=== PATIENT | female | born 1950 | race Caucasian/White ===

== ENCOUNTER 2019-12-01 16:12 | Emergency (ER) | payer MEDICARE, SELFPAY ==
[2019-12-01 16:18] VITALS: BP 151/61; PULSE 90; RESP 18; TEMP 36.6; O2SAT 97
--- NOTE | 2019-12-01 16:26 | ED.SKABFB ---
HPI - Skin/Abscess/Foreign Bdy General Chief complaint: Skin/Abscess/Foreign Body Stated complaint: wasp sting Time Seen by Provider: 12/01/19 16:17 History of Present Illness HPI narrative: She had a wasp sting to the right upper arm this morning since that time she has had progressive swelling localized around the sting. She has both pain and itching to the site. She denies any systemic symptoms. She has no previous allergic reactions to stings or bites. Related Data Home Medications Medication Instructions Recorded Confirmed Vitamin D2 500 mg PO DAILY 12/01/19 multivitamin with minerals 1 tablet PO DAILY 12/01/19 [One-A-Day Maximum Formula] Allergies Allergy/AdvReac Type Severity Reaction Status Date / Time azithromycin Allergy Unknown Unknown Verified 12/01/19 16:39 Review of Systems Review of Systems: All systems reviewed & are unremarkable except as noted in HPI and below PMFSH Past Medical History Medical History Anxiety Deficiency of other specified B group vitamins (10/17/17) Depression Hypothyroidism, unspecified Mixed hyperlipidemia Osteopenia Polymyalgia rheumatica Surgical History Surgical History Normal colonoscopy Family History Family History Other Diabetes mellitus Social History Social History Smoking status: Never smoker Second hand tobacco smoke exposure: No Alcohol intake: current Gender identity (if verbalized by the patient): Female Exam Const: General: healthy appearing, no acute distress and alert Orientation/consciousness: patient oriented x3 HENMT: Head: normal to inspection Neck: Neck: normal visual inspection and no lymphadenopathy Chest: Chest palpation & inspection: no tenderness Resp: Effort & Inspection: normal respiratory effort Auscultation: clear to auscultation bilaterally, no rales, no rhonchi and no wheezes Cardio: Rate: regular rate Rhythm: regular rhythm Skin: Other: well demarcated area of edema and mild erythema to right upper arm edema. Neuro: General: patient oriented x3 and moves all extremities Speech: normal speech Psych: Appearance: well kempt Affect: normal affect Course Course Emergency Course: Mild improvement in rash with epi, benadryl, prednisone, and pepcid. She is feeling ready for discharge Vital Signs Vital signs: Vital Signs Temperature 36.6 C 12/01/19 16:18 Pulse Rate 90 12/01/19 16:18 Respiratory Rate 18 12/01/19 16:18 Blood Pressure 151/61 H 12/01/19 16:18 Pulse Oximetry 97 12/01/19 16:18 Temperature 36.6 C 12/01/19 16:18 Pulse Rate 87 12/01/19 17:50 Respiratory Rate 21 H 12/01/19 17:50 Blood Pressure 127/68 12/01/19 17:50 Pulse Oximetry 95 12/01/19 17:50 Discharge Plan Discharge Clinical Impression: Wasp sting Qualifiers: Encounter type: initial encounter Injury intent: accidental or unintentional Qualified Code(s): T63.461A - Toxic effect of venom of wasps, accidental (unintentional), initial encounter Patient Disposition: Still a Patient Condition: Stable Instructions: Insect Bite or Sting (ED) Prescriptions: New prednisone 20 mg tablet 20 mg PO DAILY Qty: 2 RF: 0 diphenhydramine HCl [Benadryl Allergy] 25 mg tablet 50 mg PO QID Qty: 30 RF: 0 famotidine [Pepcid] 20 mg tablet 20 mg PO BID Qty: 10 RF: 0 No Action multivitamin with minerals [One-A-Day Maximum Formula] Tablet 1 tablet PO DAILY RF: 0 Vitamin D2 tablet 500 mg PO DAILY RF: 0 venlafaxine [Effexor XR] 150 mg capsule,extended release 24hr 150 mg PO DAILY Qty: 90 RF: 1 pantoprazole [Protonix] 40 mg tablet,delayed release (DR/EC) 40 mg PO QAM Qty: 30 RF: 1 prednisone 5 mg tablet 5 mg PO DAILY Qty: 30 RF: 0 zol
[2019-12-01] MEDS: EPINEPHrine HCL INJ 1 MG/ML AMPUL 0.3 MG IM (16:33)
[2019-12-01] MEDS: predniSONE 20 MG TABLET PO (16:34)
[2019-12-01] MEDS: FAMOTIDINE 20 MG TABLET PO (16:34)
[2019-12-01 16:44] VITALS: BP 132/73; PULSE 80; RESP 15; O2SAT 98
[2019-12-01 17:08] VITALS: BP 129/69; PULSE 88; RESP 19; O2SAT 96
[2019-12-01 17:50] VITALS: BP 127/68; PULSE 87; RESP 21; O2SAT 95
== END 2019-12-01 17:52 | disposition home or self-care (01) ==
PROVIDERS: Emergency Provider Emergency Medicine; PCP Family Medicine
DX: T63.461A Toxic effect of venom of wasps, accidental (unintentional), initial encounter (principal); M35.3 Polymyalgia rheumatica; E53.9 Vitamin B deficiency, unspecified; E03.9 Hypothyroidism, unspecified; E78.2 Mixed hyperlipidemia; M85.80 Other specified disorders of bone density and structure, unspecified site
CPT/HCPCS: 96372; 99283; A9270; J0171; J7512

== ENCOUNTER 2020-06-18 08:00 | Outpatient (CLI) | payer MEDICARE, SELFPAY ==
--- NOTE | ~2020-06-18 | MM_ITS ---
EXAMINATION: MM screening sree BI w marko HISTORY: Screening mammogram TECHNIQUE: Craniocaudal and mediolateral oblique 3-D tomosynthesis images were obtained and synthetic 2-D images were generated. CAD analysis was submitted and interpreted. COMPARISON: 06/12/2019, 05/25/2018, 05/19/2017 bilateral digital screening mammogram examinations BREAST PARENCHYMAL COMPOSITION: There are scattered areas of fibroglandular density. FINDINGS: There is no evidence of suspicious mass, calcification, or architectural distortion to sugg est malignancy in either breast. There has been no suspicious interval change. IMPRESSION: 1. No mammographic evidence of malignancy. 2. Recommend routine screening mammography in one year. BI-RADS Category 1: Negative Reviewed, dictated and finalized at location A. VERY CLERK
== END 2020-06-18 08:01 | disposition home or self-care (01) ==
LOC: ANHIMG 08:01
PROVIDERS: Family Provider Family Medicine; PCP Family Medicine; Visit Provider Family Medicine
DX: Z12.31 Encounter for screening mammogram for malignant neoplasm of breast (principal)
CPT/HCPCS: 77063; 77067

== ENCOUNTER 2020-12-08 23:41 | Emergency (ER) | payer MEDICARE, SELFPAY ==
[2020-12-09 00:15] VITALS: BP 141/64; PULSE 81; RESP 20; TEMP 36.4; O2SAT 98
[2020-12-09 00:33] LABS: Basophils Percent Auto 0.1 % (0.2-1.2); Eosinophils Absolute Auto 0.2 K/mm3 (0-0.3); Eosinophils Percent Auto 1.7 % (0-4.4); Hematocrit 41.8 % (37.0-47.0); Hemoglobin 13.1 g/dL (12.0-15.0); Immature Granulocyte Absolute 0.02 K/mm3 (0.00-0.031); Immature Granulocyte Percent A 0.2 % (0-0.5); Lymphocytes Absolute Auto 2.71 K/mm3 (0.9-3.2); Lymphocytes Percent Auto 29.2 % (18.3-44.2); Mean Corpuscular HGB Conc 31.3 g/dl (32-36); Mean Corpuscular Hemoglobin 26.7 pg (26-34); Mean Corpuscular Volume 85.3 fl (80-100); Mean Platelet Volume 10.5 fl (7.4-10.4); Monocytes Absolute Auto 0.4 K/mm3 (0.1-0.6); Monocytes Percent Auto 4.5 % (2.6-8.5); Neutrophils Percent Auto 64.3 % (45.5-73.1); Platelet Count Result 267 k/mm3 (150-375); Red Cell Distribution Width 13.7 % (11.5-14.5); White Blood Count 9.3 K/mm3 (4.5-10.0)
[2020-12-09 00:43] LABS: Anion Gap 10 mmol/L (8-16); Blood Urea Nitrogen 12 mg/dL (7-17); Calcium 9.8 mg/dL (8.4-10.2); Carbon Dioxide 22 mmol/L (22-30); Chloride 105 mmol/L (98-107); Estimated CRCL calculation 62 ml/min; Estimated Glomerular Filt Rate > 60; Glucose 111 mg/dL (65-105); Sodium 137 mmol/L (137-145)
[2020-12-09 00:45] LABS: CRP 0.9 mg/dL (<1.0)
[2020-12-09 02:30] VITALS: BP 119/74; PULSE 77; RESP 18; O2SAT 100
--- NOTE | 2020-12-09 02:33 | ED.SKABFB ---
HPI - Skin/Abscess/Foreign Bdy General Chief complaint: Skin/Abscess/Foreign Body Stated complaint: Stung, L hand swelling Time Seen by Provider: 12/09/20 02:17 Source: patient and RN notes reviewed Mode of arrival: ambulatory Limitations: no limitations History of Present Illness HPI narrative: This is a 70 year old female who presents for evaluation of left hand swelling. Patient states she was stung by a wasp yesterday afternoon. She developed hand swelling and itching. She took benadryl for her itching and swelling. She denies chest pain, sob, rash, throat or tongue swelling . Related Data Home Medications Medication Instructions Recorded Confirmed Vitamin D2 500 mg PO DAILY 12/01/19 02/16/20 multivitamin with minerals 1 tablet PO DAILY 12/01/19 02/16/20 [One-A-Day Maximum Formula] Allergies Allergy/AdvReac Type Severity Reaction Status Date / Time azithromycin Allergy Unknown Unknown Verified 09/24/20 09:09 Review of Systems Review of Systems: All systems reviewed & are unremarkable except as noted in HPI and below PMFSH Past Medical History Medical History Anxiety Arthritis Deficiency of other specified B group vitamins (10/17/17) Depression Hypothyroidism, unspecified Insomnia Mixed hyperlipidemia Osteopenia Polymyalgia rheumatica Vision abnormalities Surgical History Surgical History Normal colonoscopy Family History Family History Other Diabetes mellitus Social History Social History Second hand tobacco smoke exposure: No Alcohol intake: current Gender identity (if verbalized by the patient): Female Exam Const: General: no acute distress and alert Orientation/consciousness: patient oriented x3 Eyes: EOM: EOMs intact bilaterally Chest: Chest palpation & inspection: normal inspection of the chest Resp: Effort & Inspection: normal respiratory effort and no retractions Auscultation: clear to auscultation bilaterally Cardio: Rate: regular rate Rhythm: regular rhythm Neuro: General: patient oriented x3 and moves all extremities Extrem: General: edema (left dorsal hand nonpitting edema) Psych: Mental Status: mental status grossly normal Affect: normal affect Course Reevaluation(s) Reevaluation #1: I have discussed with patient this is local reaction. She is stable for discharge to treat at home Date: 12/09/20 Time: 02:40 Vital Signs Vital signs: Vital Signs Temperature 97.6 F 12/09/20 00:15 Pulse Rate 81 12/09/20 00:15 Respiratory Rate 20 12/09/20 00:15 Blood Pressure 141/64 H 12/09/20 00:15 Pulse Oximetry 98 12/09/20 00:15 Temperature 97.6 F 12/09/20 00:15 Pulse Rate 77 12/09/20 02:30 Respiratory Rate 18 12/09/20 02:30 Blood Pressure 119/74 12/09/20 02:30 Pulse Oximetry 100 12/09/20 02:30 MDM - Skin/Abscess/Foreign Bdy Lab Data Attestation: I reviewed the patient's lab results. Result diagrams: 12/09/20 00:23 12/09/20 00:23 Labs: Lab Results 12/09/20 12/09/20 12/09/20 Range/Units 00:23 00:23 00:23 WBC 9.3 (4.5-10.0) K/mm3 RBC 4.90 (4.2-5.4) M/mm3 Hgb 13.1 (12.0-15.0) g/dL Hct 41.8 (37.0-47.0) % MCV 85.3 (80-100) fl MCH 26.7 (26-34) pg MCHC 31.3 L (32-36) g/dl RDW 13.7 (11.5-14.5) % Plt Count 267 (150-375) k/mm3 MPV 10.5 H (7.4-10.4) fl Immature Gran % (Auto) 0.2 (0-0.5) % Neut % (Auto) 64.3 (45.5-73.1) % Lymph % (Auto) 29.2 (18.3-44.2) % Allen % (Auto) 4.5 (2.6-8.5) % Eos % (Auto) 1.7 (0-4.4) % Baso % (Auto) 0.1 L (0.2-1.2) % Lymph # (Auto) 2.71 (0.9-3.2) K/mm3 Allen # (Auto) 0.4 (0.1-0.6) K/mm3 Eos # (Auto) 0.2 (0-0.3) K/mm3 Baso # (Auto) 0.0
[2020-12-09] MEDS: methylPREDNISolone SOD SUCC 125 MG VIAL IM (02:46)
== END 2020-12-09 02:57 | disposition home or self-care (01) ==
PROVIDERS: Emergency Medicine; Emergency Provider General Practice; PCP Family Medicine
DX: T63.461A Toxic effect of venom of wasps, accidental (unintentional), initial encounter (principal); R22.32 Localized swelling, mass and lump, left upper limb; E03.9 Hypothyroidism, unspecified; E78.2 Mixed hyperlipidemia
CPT/HCPCS: 36415; 80048; 85025; 86140; 96372; 99283; J2930

== ENCOUNTER 2020-12-27 15:40 | Emergency (ER) | payer MEDICARE, SELFPAY ==
[2020-12-27 15:44] VITALS: BP 136/60; PULSE 95; RESP 20; TEMP 36.7; O2SAT 99
--- NOTE | 2020-12-27 17:05 | ED.URI ---
HPI - URI/Sore Throat General Chief Complaint: Upper Respiratory Infection Stated Complaint: COUGH/SOB Source: patient and RN notes reviewed Limitations: no limitations History of Present Illness HPI Narrative: The vaccinated patient-nonsmoker/nondrinker with history of polymyalgia rheumatica on several meds, mood stabilizers-presents with cough. Patient states she has a least a week long history of primary nighttime, cough associated with myalgias with headache and fatigue. No fever, sore throat, S OB, earache, wheeze, CP, sputum changes, loss of taste/smell. SHe is here today concerned as her grandson has recently tested positive for Covid, in the last couple days. Related Data Home Medications Medication Instructions Recorded Confirmed Vitamin D2 500 mg PO DAILY 12/01/19 02/16/20 multivitamin with minerals 1 tablet PO DAILY 12/01/19 02/16/20 [One-A-Day Maximum Formula] Allergies Allergy/AdvReac Type Severity Reaction Status Date / Time azithromycin Allergy Unknown Unknown Verified 12/10/20 13:55 Review of Systems Review of Systems: General/Constitutional: No weight loss,fever Eyes: N0: Redness,discharge Ears/Nose/Throat: No: Epistaxis,ear discharge Respiratory: Denies: Hemoptysis Gastrointestinal: No Vomiting, Bleeding-rectal Skin: No Lumps, eruption Neurologic: No Focal Weakness,Sz Hematologic: Denies: Petechiae/Purpura Psychiatric: No: Suicida ideationl All Other Systems: Reviewed and Negative [facility] Past Medical History Medical History (Updated 12/30/20 @ 18:10 by Rishabh Corbin MD) Anxiety Arthritis Deficiency of other specified B group vitamins (10/17/17) Depression Hypothyroidism, unspecified Insomnia Mixed hyperlipidemia Need for tetanus booster Osteopenia Polymyalgia rheumatica Vision abnormalities Surgical History Surgical History Normal colonoscopy Family History Family History Other Diabetes mellitus Social History Social History Smoking status: Never smoker Second hand tobacco smoke exposure: No Alcohol intake: current Substance use: never Substance use type: does not use Gender identity (if verbalized by the patient): Female Comments At time of signature, agree with nursing past medical, surgical, social and family history. There is no relevant family history pertinent to the presenting complaint Exam Narrative: General Appearance: Well appearing, Well nourished EYE: PERRLA, Conjunctiva clear Ears: Auditory canal normal, TM normal Nose: Rhinorrhea, Mucousal erythema Mouth/Throat: MM moist, Uvula midline, Pharyngeal erythema Neck: Supple, No adenopathy Respiratory: No respiratory distress, Breath sounds equal, Clear to auscultation Cardiovascular: RRR, No JVD Musculoskeletal: Non tender, Normal strength Skin: Warm, Dry Neurological: A&O x3, CN II-XII intact Psychiatric: Normal mood, Normal affect Course Vital Signs Vital signs: Vital Signs Temperature 98.0 F 12/27/20 15:44 Pulse Rate 95 12/27/20 15:44 Respiratory Rate 20 12/27/20 15:44 Blood Pressure 136/60 12/27/20 15:44 Pulse Oximetry 99 12/27/20 15:44 Temperature 98.0 F 12/27/20 15:44 Pulse Rate 95 12/27/20 15:44 Respiratory Rate 20 12/27/20 15:44 Blood Pressure 136/60 12/27/20 15:44 Pulse Oximetry 99 12/27/20 15:44 MDM - URI/Sore Throat Lab Data Labs: Lab Results 12/27/20 12/27/20 Range/Units 16:46 Unknown SARS-CoV-2 RNA (RT-PCR) Negative POC SARS CoV-2 Ag Negative (Negative) Discharge Plan Discharge Clinical Impression: Cough, Nose congestion Patient Disposition: Home, Self-Care Condition: Stable Instructions: Acute Cough (ED) Prescriptions: New benzonatate [Tessalon Perles] 100 mg capsule 100 mg PO TID Qty: 20 RF: 1 co
[2020-12-29 13:58] LABS: SARS-CoV-2 RNA PCR Negative
== END 2020-12-27 17:16 | disposition home or self-care (01) ==
PROVIDERS: Emergency Provider Emergency Medicine; PCP Family Medicine
DX: R05 Cough (principal); R09.81 Nasal congestion; Z20.822 Contact with and (suspected) exposure to COVID-19; M19.90 Unspecified osteoarthritis, unspecified site; E03.9 Hypothyroidism, unspecified; E78.2 Mixed hyperlipidemia; M81.0 Age-related osteoporosis without current pathological fracture; M35.3 Polymyalgia rheumatica
CPT/HCPCS: 87426; 99213; C9803; G0463; U0003; U0005

== ENCOUNTER 2021-02-20 09:27 | Outpatient (CLI) | payer MEDICARE, SELFPAY ==
--- NOTE | ~2021-02-20 | XR_ITS ---
EXAMINATION: XR wrist LT min 3V DATE: 02/20/2021 09:49 INDICATION: Painful left basal joint. TECHNIQUE: Posteroanterior, ulnar deviation, oblique, and lateral views of the left wrist were obtain ed. COMPARISON: none FINDINGS: Alignment is normal. No fracture. Mild polyarticular osteoarthritis at the left distal radioulnar, fi rst carpometacarpal and first interphalangeal joints. Soft tissues are unremarkable. IMPRESSION: 1. 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 No acute osseous a bnormality. Reviewed, dictated and finalized at location A. IMPRESSION: 1. 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 No acute osseous abnormality.
== END 2021-02-20 09:28 | disposition home or self-care (01) ==
LOC: ANHIMG 09:32
PROVIDERS: PCP Family Medicine; Visit Provider Plastic Surgery
DX: M19.031 Primary osteoarthritis, right wrist (principal)
CPT/HCPCS: 73110

== ENCOUNTER 2021-04-10 09:12 | Outpatient (CLI) | payer MEDICARE, SELFPAY ==
--- NOTE | 2021-04-10 09:30 | ECG_ITS ---
Measurements Intervals T[place]ill Rate: 80 P: 25 UT: 177 QRS: 0 QRSD: 78 T: 65 QT: 325 QTc: 375 Interpretive Statements SINUS RHYTHM DELAYED PRECORDIAL R/S TRANSITION LEFT VENTRICULAR HYPERTROPHY WITH ST-T CHANGE BASELINE ARTIFACT- I, II, III, AVR, AVL, AVF, V3-V6 BORDERLINE ECG Electronically Signed On 04-10-2021 15:14:18 INDUSTRIAL ECOLOGIST by Madhav Biswas D.O.
== END 2021-04-10 09:13 | disposition home or self-care (01) ==
LOC: ANHSURGERY 09:15
PROVIDERS: PCP Family Medicine; Visit Provider Plastic Surgery
DX: Z01.810 Encounter for preprocedural cardiovascular examination (principal); E78.2 Mixed hyperlipidemia
CPT/HCPCS: 93005

== ENCOUNTER 2021-04-16 00:56 | Day surgery (SDC) | payer MEDICARE, OTHER, SELFPAY ==
[2021-04-08 13:06] VITALS: BMI 29.2
--- NOTE | 2021-04-08 13:18 | PC.NURSE ---
Report to the Outpatient Waiting Room, entrance under the green pavilion located off [facility], at time ___8:30AM____ on date __04/16/21____. OR Time: ___10:30AM . - You and your visitor will be asked a series of questions to screen for COVID 19 for your protection. - A mask is required within the hospital. - Only one visitor is allowed at this time. Patient visitors will be guided where to wait when not with patient. Preoperative COVID Testing Requirements: No COVID Test needed if: (proof is required; if not received patient will have Rapid Test prior to entry) - Patient has received COVID Vaccine at least 14 days prior to procedure date or - Patient has positive COVID test result within last 90 days of surgery date. COVID Test needed if above criteria is not met If not COVID vaccinated a COVID test must be conducted within 72 hours of surgery and patient is asked to isolate self from time of testing until procedure. You will go to the [employer] [facility] for your COVID testing. The [employer] [facility] is located at the corner of [address] from [facility]. You will only be called if COVID results are positive and your surgeon may reschedule your elective surgery date. Patients may have clear liquids (water, carbonated beverages, clear teas, apple juice) until 3 hours prior to surgery with a maximum of 20 ounces. - No food from midnight until time of surgery - Infants may have breast milk until 4 hours before surgery, infant formula 6 hours prior to surgery. - Children will be allowed to drink immediately following surgery. If applicable, please bring a bottle or sippy cup to assist with drinking. Juice, water, soda, and popsicles are readily available. For infants on formula, please bring formula the day of surgery. Pacifiers are allowed. Take the following medications with a SIP of water the morning of surgery: ___VENLAFAXINE Medications to discontinue per physician ALL VITAMINS/SUPPLEMENTS 3 DAYS PREOP, OK TO CONTINUE ASPIRIN PER DR HICKMAN Date to take last dose 04/13/21 Please no make-up, nail jordanian, hairspray, perfume, deodorant, or body powder the day of surgery. No jewelry (including any body piercings) or valuables the day of surgery, leave them at home. Please take a shower or bath the night before, or the morning of, surgery with an antibacterial soap. Wear comfortable, loose fitting clothing. Children are encouraged to wear pajamas. - Jewelry must be removed prior to entering the operating room. Rings and piercings that are not removed may be cut off. - The hospital will not accept responsibility for valuables. - Please leave all valuables, including medications, at home the day of surgery. If you are going home after surgery, a licensed auto crane driver must drive you home. - NO public transportation without another adult. - We recommend that an adult stay with you for 24 hours following discharge. - We also recommend that you do not drive, make important decision, drink alcoholic beverages, or take any drugs that were not prescribed by your health care provider for at least 24 hours after your discharge time. For Pediatric surgeries, we recommend two adults accompany the child home (only one inside the building at this time). Follow any additional instructions given to you from your surgeon. Telephone instructions given to ____PATIENT and asked if any additional questions and then verbalized understanding. Patient advised to call surgeon office or pre surgery nurse liaison [phone] if any additional questions.
[2021-04-16] VITALS (7 sets, daily range): BP systolic 100–127; BP diastolic 53–66; PULSE 81–127; RESP 15–20; TEMP 36.4–36.8; O2SAT 92–98
--- NOTE | ~2021-04-16 | XR_ITS ---
EXAMINATION: XR surgery orthopedic EXAM DATE: 04/16/2021 12:13 INDICATION: Arthroplasty Lt, Lt Trapezium Resection. TECHNIQUE: Fluoroscopy used during left hand surgery performed by Dr. Ricci Almieda MD. Radiolog ist was not present for the imaging or procedure. Total fluoroscopic time of 14 seconds. The DAP fo r this procedure was 0.006 mGym2. A total of 5 images sent to PACS from the exam. Comparison is made to prior examination from 02/20/2021. FINDINGS: There is been interval resorption of left trapezium, gas within the resection bed. Correl ate with procedure note. IMPRESSION: Fluoroscopy used during left trapezium resection. Reviewed, dictated and finalized at location B. CURVER
--- NOTE | 2021-04-16 08:04 | WPDHPUPDATE1 ---
History and Physical Update Update Date/Time: 04/16/21 08:04 History and Physical has been reviewed, including an updated exam of the patient. There are NO changes in the patient's condition. Risks, benefits, and alternatives have been discussed and questions answered. Patient agrees to proceed with procedure.
[2021-04-16] MEDS: ACETAMINOPHEN 500 MG TABLET 1000 MG PO (09:03)
[2021-04-16] MEDS: LACTATED RINGERS 1,000 ML 30 ML IV CONT (09:05)
--- NOTE | 2021-04-16 09:43 | WPDANESEPPF ---
Anes - Initial Pre Proc Eval Procedure: Operation Date: 04/16/21 10:30 Proposed Procedures p Left Trapezium Resection Arthroplasty with Arthrex Internal Brace - Ricci Almeida MD Date/Time: 04/16/21 09:43 Surgeon: Ricci Almeida MD Pre Op Diagnosis: left first basal joint Oa Patient Data Age: 71 Gender: F Height: 1.6 m Weight: 74.6 kg Last Vital Signs Temp 36.8 C 04/16/21 08:46 Pulse 81 04/16/21 08:46 Resp 20 04/16/21 08:46 BP 126/66 04/16/21 08:46 Pulse Ox 98 04/16/21 08:46 Allergies Allergy/AdvReac Type Severity Reaction Status Date / Time azithromycin AdvReac Unknown Abdominal Verified 04/16/21 08:55 Pain Home Medications Medication Instructions Recorded Confirmed Type Vitamin D2 500 mg PO QAM 12/01/19 04/16/21 History multivitamin with minerals 1 tablet PO DAILY 12/01/19 04/16/21 History [One-A-Day Maximum Formula] simvastatin 20 mg tablet 20 mg PO DAILY #90 tablet 11/17/20 04/16/21 Rx quetiapine 25 mg tablet 25 mg PO QHS #30 tablet 01/14/21 04/16/21 Rx venlafaxine 150 mg 150 mg PO DAILY #90 cap 02/12/21 04/16/21 Rx capsule,extended release 24 hr Aspir-81 81 mg PO QAM 04/08/21 04/16/21 History sertraline 100 mg PO HS 04/08/21 04/16/21 History Patient hx anesthesia problems: none Family hx anesthesia problems: none Results Review: All pre-operative results and documents have been reviewed as part of the pre-operative evaluation. [facility] Past Medical History Medical History Anxiety Arthritis Deficiency of other specified B group vitamins (10/17/17) Depression Hypothyroidism, unspecified Insomnia Mixed hyperlipidemia Need for tetanus booster Osteopenia Polymyalgia rheumatica Prediabetes Vision abnormalities Surgical History Surgical History Normal colonoscopy Family History Family History Other Diabetes mellitus Social History Social History Smoking status: Never smoker Second hand tobacco smoke exposure: No Alcohol intake: current Substance use: never Substance use type: does not use Living arrangements: with family Additional living arrangements comments: [facility] Gender identity (if verbalized by the patient): Female Spiritual care concerns: No Anes - Eval Final PreProcedure Day of Procedure 04/16/21 09:43 Patient weight: overweight Heart: regular rate and rhythm Lungs: clear to auscultation Airway: Mallampati scale class II Neurological: alert and oriented ASA classification: III Emergent: no Anesthetic plan: proceed Anesthesia type and monitoring: general LMA and standard monitoring Results Review: All pre-operative results and documents have been reviewed as part of the pre-operative evaluation. Informed Consent: The patient's anesthetic plan and its attendant risks and benefits were discussed with the patient/family/POA. Questions were solicited and answers provided to the satisfaction of the patient/family/POA.
[2021-04-16] MEDS: ceFAZolin 2 GM/D5W 50 ML 2 GM/50 ML BAG IVPB (10:32)
[2021-04-16] MEDS: LIDO 1%/EPINEPHRINE 1:100,000 50 ML VIAL 10 ML INFILTRATE (12:03)
--- NOTE | 2021-04-16 12:31 | W.PM.PROC2 ---
Procedure Note - Detailed Date of Procedure 04/16/21 Pre-op Diagnosis left first basal joint Oa Post-op Diagnosis same Procedure Performed Left trapezium resection arthroplasty with Arthrex internal brace Surgeon Ricci Almeida MD Personnel Records Clerk Hattie Anesthesia general Description of Procedure The basal joint area on the left was marked in the holding area. The patient was taken to the operating room and placed supine on the operating table. A time-out was held and confirmed. The left upper extremity was prepped and draped usual fashion. The site for incision was marked and the site locally infiltrated with 1% lidocaine with epinephrine. The extremity was exsanguinated with a Kiran wrap and the tourniquet inflated to 250 mmHg. Incision was made as marked and dissection was carried through the subcutaneous tissue to the extensor and abductor tendons. Cutaneous nerves were held out of harm's way. The interspace between the EPB in the APL was incised and the carpal metacarpal joint exposed. The joint space was opened and sharp dissection revealed the base of the metacarpal and exposed radial aspect of the trapezium. Sharp and blunt dissection was carried out as far as we could from this exposure. The trapezium was split in 2 with a mallet and half-inch osteotome. The entire trapezium was removed with a rongeur. The resection was imaged. Radial facet at the base of the 2nd metacarpal was identified and the appropriate position for the guidewire was determined with imaging. The guidewire was inserted the drill was position full-thickness guidewire and the hole for the anchor was made. The Arthrex anchor was inset. The appropriate position on the radial base of the 1st metacarpal was identified the site also is drilled with the guidewire and the Arthrex internal brace drill was passed over that. The wire was removed and the suture tape was positioned appropriately and the anchor lock set. The suture tape was cut. The site was irrigated the capsule was repaired with 3-0 Vicryl suture and the skin with a 3-0 Vicryl on the deep dermis a running intradermal wound closure was accomplished with 4-0 running Monocryl. Bandage and radial thumb spica splint were applied. The tourniquet was released at the time of the wound closure. The patient was given 2 g Ancef preop and some oral Tylenol. No additional local was placed. The patient is discharged from the operating in stable condition she has a prescription for hydrocodone number 10 Implants Arthrex internal brace Estimated Blood Loss -5.0 Tourniquet Time 65 Drains No Packing No Pathology none sent Complications No immediate complications Condition stable Disposition PACU
== END 2021-04-16 13:55 | disposition home or self-care (01) ==
PROVIDERS: PCP Family Medicine; Visit Provider Plastic Surgery
PROC: (CPT 25447; principal; 2021-04-16 10:30)
DX: M18.12 Unilateral primary osteoarthritis of first carpometacarpal joint, left hand (principal); E78.2 Mixed hyperlipidemia; R73.03 Prediabetes; E03.9 Hypothyroidism, unspecified; F41.8 Other specified anxiety disorders; M35.3 Polymyalgia rheumatica; E53.8 Deficiency of other specified B group vitamins; Z79.82 Long term (current) use of aspirin
CPT/HCPCS: 25447; A9270; C1713; J0690; J1100; J2250; J2405; J2704; J3010; J7120

== ENCOUNTER 2021-05-26 11:00 | Outpatient (RCR) | payer MEDICARE, OTHER, SELFPAY ==
--- NOTE | 2021-04-30 09:23 | OTOPEVAL ---
OCCUPATIONAL THERAPY INITIAL EVALUATION REPORT 04/30/21 Thank you for referring Radha Bush to [facility].? The patient is scheduled to be seen for therapy?1x/week for 4 weeks. Please review, sign, date and return this plan of care TIFFANI. I agree with and certify that the following plan of care is medically necessary. 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 Respiratory History Hx Respiratory Disorders No Significant History Gastrointestinal History Hx Gastrointestinal Disorders No Significant History Genitourinary History Hx Kidney Stones Yes: MANY YEARS AGO Musculoskeletal History Hx Arthritis Yes Hx Orthopedic Surgery Yes: LT ROTATOR CUFF REMOVED Hx Other Musculoskeletal Disorders Yes: LT FIRST BASAL JOINT OA Hematological History Hx Hematological Disorders No Significant History Endocrine History Hx Endocrine Disorders No Significant History HEENT History Hx HEENT Disorders No Significant History Integumentary History Hx Skin Disorders No Significant History Reproductive History Hx Post Menopausal Yes Psychosocial History Hx Depression Yes Pain History History of Any Previous or Ongoing No Significant History Instance of Pain Anesthesia History Hx Anesthesia Reactions No Significant History Other History Hx Other Surgeries Yes: rtc left shoulder; pinky finger rt hand; Evaluation Information Problem Diagnosis s/p Trapezium resection with Arthrex internal brace Onset 04/16/21 Cause CMC OA Subjective Information Patient reports that she is Query Text:As Reported By Patient/ able to use the left hand to Family help wash her hair in the shower. She states that she is unable to pinch and open anything, or zip zippers, and has difficulty pinching to pull up pants. She has been using her right hand to help mostly. does cooking. She likes to craft. Prior Level of Function Activity Level (Last 3 Months) Occupation Retired Hand Dominance Right Activity of
--- NOTE | 2021-05-26 11:34 | OTOPEVAL ---
OCCUPATIONAL THERAPY RE-EVALUATION REPORT AND DISCHARGE NOTE 05/26/21 Cary Garcia , is a 71 year-old, right handed female who is 6 weeks s/p left thumb CMC arthroplasty. She has made excellent progress with therapy. She has returned to normal ROM of the wrist and thumb and strength is progressing. She reports no functional limitations at this time. She is independent with HEP. No further skilled OT indicated. Thank you for referring Radha Bush to [facility].? Please review, sign, date and return this D/C Note TIFFANI. I agree with and certify that the following plan of care is medically necessary. Referring Physician Date Admitting Provider: Attending Provider: Ricci Almeida MD Referring Provider: *OT Outpatient Evaluation Start: 04/30/21 08:24 Evaluation Information Problem Diagnosis s/p Trapezium resection with Arthrex internal brace Onset 04/16/21 Cause CMC OA Additional Evaluation Detail This week is 6 weeks post op. She has been very compliant with HEPs. She currently has HEP for ROM and strengthening. Subjective Information Patient reports that she is Query Text:As Reported By Patient/ now able to use the left to Family pinch and open bags/containers , zip zippers, and pull up pants. She reports she has returned to doing her crafting . She reports that she has no limitations at this time. She feels like her ROM and strength have returned. Pain Assessment Timing of Pain Assessment Timing of Pain Assessment Re-assessment Pain Scale Pain Scale Used Numeric (1 - 10) Self Report Pain Assessment Left Hand(s) Reported Pain Level 0 Lowest Pain Intensity 0 Greatest Pain Intensity 3 Pain Score Pain Score 0: Self Report Upper Extremity Range of Motion Wrist Range of Motion Left Wrist Flexion - Active 70 Wrist Extension - Active 60 Wrist Radial Deviation - Active 20 Wrist Ulnar Deviation - Active 35 Wrist Range of Motion Comments Wrist flexion improved from 50* Wrist extension improved from 55* Wrist RD improved from 15* Wrist UD improved from 25* Finger Range of Motion Left Reason Not Measured WNL/Left Finger Range of Motion Comments Hook fist - intact Full fist - intact Thumb Range of Motion Left Thumb MCP Flexion - Active 50 Thumb IP Flexion - Active 65 Thumb CMC Radial Abduction - Active 50 Thumb CMC Palmar Abduction - Active 45 Opposition
== END 2021-05-26 15:47 | disposition home or self-care (01) ==
LOC: ANHOT 11:00
PROVIDERS: PCP Family Medicine; Visit Provider Plastic Surgery
DX: Z48.89 Encounter for other specified surgical aftercare (principal)
CPT/HCPCS: 97018; 97110; 97140; 97165

== ENCOUNTER 2021-07-08 09:18 | Outpatient (CLI) | payer MEDICARE, SELFPAY ==
--- NOTE | ~2021-07-08 | MM_ITS ---
EXAMINATION: MM screening [facility] BI w marko HISTORY: Screening mammogram TECHNIQUE: Craniocaudal and mediolateral oblique 3-D tomosynthesis images were obtained and synthetic 2-D images were generated. CAD analysis was submitted and interpreted. COMPARISON: 06/18/2020, 06/12/2019, 05/25/2018 BREAST PARENCHYMAL COMPOSITION: There are scattered areas of fibroglandular density. FINDINGS: There is no evidence of suspicious mass, calcification, or architectural distortion to sugg est malignancy in either breast. There has been no suspicious interval change. IMPRESSION: 1. No mammographic evidence of malignancy. 2. Recommend routine screening mammography in one year. BI-RADS Category 1: Negative Reviewed, dictated and finalized at location A. CE DETENTION ATTENDANT
== END 2021-07-08 09:19 | disposition home or self-care (01) ==
LOC: ANHIMG 09:20
PROVIDERS: PCP Family Medicine; Visit Provider Family Medicine
DX: Z12.31 Encounter for screening mammogram for malignant neoplasm of breast (principal)
CPT/HCPCS: 77063; 77067

== ENCOUNTER 2021-07-13 00:49 | Day surgery (SDC) | payer MEDICARE, OTHER, SELFPAY ==
[2021-06-29 14:32] VITALS: BMI 28.5
[2021-07-13 09:03] VITALS: BP 136/66; PULSE 79; RESP 18; TEMP 36.1; O2SAT 98; BMI 28.3
--- NOTE | 2021-07-13 09:15 | WPDGICN ---
Assessment and Plan Assessment and plan (1) Encounter for screening colonoscopy: Code(s): Z12.11 - Encounter for screening for malignant neoplasm of colon Status: Acute Assessment and Plan: Patient presents for screening colonoscopy. She has had a family history of colon polyps in her g mother may have had colon cancer. Plan is for surveillance at this time. GI Consult Note Consult date/time: 07/13/21 09:15 HPI: Radha Bush is a 71 year old female Presents for screening colonoscopy. Patient reports her current weight appetite and bowel movements are normal. She denies abdominal pain. She has had no bleeding. Family history is significant that her grandmother had colon cancer mother may have had colon polyps. Last colonoscopy 6 years ago was unremarkable. Patient presents today for neoplasia screening. Review of Systems Review of Systems: All systems reviewed & are unremarkable except as noted in HPI and below PMFSH Past Medical History Medical History (Updated 07/13/21 @ 09:17 by Dre Haley MD) Anxiety Arthritis Deficiency of other specified B group vitamins (10/17/17) Depression Hypothyroidism, unspecified Insomnia Mixed hyperlipidemia Need for tetanus booster Osteopenia Polymyalgia rheumatica Prediabetes Vision abnormalities Surgical History Surgical History (Updated 06/11/21 @ 08:37 by Nilsa Torrez CMA) History of thumb surgery Normal colonoscopy Family History Family History Other Diabetes mellitus Social History Social History Second hand tobacco smoke exposure: No Alcohol intake: current Substance use: never Substance use type: does not use Living arrangements: with family Additional living arrangements comments: ARTURO Gender identity (if verbalized by the patient): Female Sexual Orientation (if Verbalized by the Patient): Straight or Heterosexual Spiritual care concerns: No Agree to blood products: Yes Meds Home Medications and Allergies Home Medications Medication Instructions Recorded Confirmed Type One-A-Day Maximum Formula 1 tablet PO DAILY 12/01/19 06/29/21 History Vitamin D2 500 mg PO QAM 12/01/19 06/29/21 History simvastatin 20 mg tablet 20 mg PO DAILY #90 tablet 11/17/20 06/29/21 Rx venlafaxine 150 mg 150 mg PO DAILY #90 cap 02/12/21 06/29/21 Rx capsule,extended release 24 hr Aspir-81 81 mg PO QAM 04/08/21 06/29/21 History sertraline 100 mg tablet 100 mg PO HS #90 tablet 05/13/21 06/29/21 Rx risperidone 0.5 mg tablet 0.5 mg PO QHS #30 tablet 06/24/21 06/29/21 Rx Allergies Allergy/AdvReac Type Severity Reaction Status Date / Time azithromycin AdvReac Unknown Abdominal Verified 07/13/21 09:02 Pain Vital Signs Vital Signs - 24 hr 07/13/21 09:03 Temperature 97 F L Pulse Rate 79 Respiratory Rate 18 Blood Pressure 136/66 Pulse Oximetry 98 Exam Narrative: Physical exam reveals patient to be alert. Vital signs stable. HEENT exam is unremarkable. Patient is anicteric. Lungs are clear to auscultation and percussion. Heart is without murmur or extra sounds. Abdominal exam bowel sounds are present soft nontender with no organomegaly. Digital external rectal exam is normal.
[2021-07-13] MEDS: LACTATED RINGERS 1,000 ML 150 ML IV CONT (09:19)
[2021-07-13 09:57] VITALS: BP 80/39; PULSE 81; RESP 21; O2SAT 99
[2021-07-13 10:05] VITALS: BP 99/47; PULSE 77; RESP 21; O2SAT 100
[2021-07-13 10:15] VITALS: BP 116/61; PULSE 70; RESP 21; O2SAT 98
== END 2021-07-13 10:27 | disposition home or self-care (01) ==
PROVIDERS: PCP Family Medicine; Visit Provider Internal Medicine Gastroenterology
PROC: 0DJD8ZZ Inspection of Lower Intestinal Tract, Via Natural or Artificial Opening Endoscopic (ICD-10-PCS; CPT 45378; principal; 2021-07-13 10:00)
DX: Z12.11 Encounter for screening for malignant neoplasm of colon (principal); Z83.71 Family history of colonic polyps; K64.8 Other hemorrhoids; M19.90 Unspecified osteoarthritis, unspecified site; F41.8 Other specified anxiety disorders; E53.9 Vitamin B deficiency, unspecified; E03.9 Hypothyroidism, unspecified; E78.2 Mixed hyperlipidemia; R73.03 Prediabetes; M35.3 Polymyalgia rheumatica; Z79.82 Long term (current) use of aspirin
CPT/HCPCS: G0105; J2704; J7120

== ENCOUNTER → 2022-03-05 12:27 | Outpatient (CLI) | payer MEDICARE, SELFPAY ==
--- NOTE | ~2022-03-05 | DEXA_ITS ---
Bone Density Report Name: SHLOMO BULLOCK Age: 72 Sex: Female Ethnicity: White Date of : 1950 Indication: osteopenia; postmenopausal Referring Provider: JOHNNY WILCOX Study: Bone densitometry was performed. Exam Date: March 05, 2022 Accession number: [id number] Bone Density: Region BMD T-score Z-score Classification AP Spine (L1-L4) 0.851 -1.8 0.4 Osteopenia Femoral Neck (Left) 0.693 -1.4 0.4 Osteopenia Total Hip (Left) 0.873 -0.6 1.0 Normal Femoral Neck (Right) 0.637 -1.9 -0.1 Osteopenia Total Hip (Right) 0.873 -0.6 1.0 Normal Total Hip Mean 0.873 -0.6 1.0 Normal World Health Organization criteria for BMD impression classify patients as: Normal (T-score at or above -1.0), Osteopenia (T-score between -1.0 and -2.5), or Osteoporosis (T-score at or below -2.5). 10-year Fracture Risk(1): Major Osteoporotic Fracture 11% Hip Fracture 1.9% Reported Risk Factors: [place] (), Neck BMD=0.637, BMI=30.6 (1) FRAX(R) Version 3.08. Fracture probability calculated for an untreated patient. Fracture probability may be lower if the patient has received treatment. Previous Exams: Region Exam Age BMD T-score BMD Change BMD Change Date g/cm2 vs Baseline vs Previous AP Spine(L1-L4) 03/05/2022 72 0.851 -1.8 0.017 0.031* 10/03/2009 59 0.820 -2.1 -0.014 -0.013 02/16/2008 57 0.833 -1.9 -0.001 -0.001 02/09/2006 55 0.834 -1.9 Total Hip(Left) 03/05/2022 72 0.873 -0.6 -0.014 0.043* 10/03/2009 59 0.830 -0.9 -0.057* -0.064* 02/16/2008 57 0.893 -0.4 0.007 0.007 02/09/2006 55 0.887 -0.5 Total Hip(Right) 03/05/2022 72 0.873 -0.6 -0.009 0.027* 10/03/2009 59 0.846 -0.8 -0.037* -0.010 02/16/2008 57 0.856 -0.7 -0.027 -0.027 02/09/2006 55 0.883 -0.5 *Denotes significance at 95% confidence level, LSC for AP Spine = 0.022 g/cm2, LSC for Total Hip = 0.027 g/cm2 Clinical Information Provided by Patient: Has used the following medications: Calcium, MTV, VIT D included in Calcium Patient maximum height was 63 Menopause Age: 56 Drinks caffeinated beverages Onset of menses at age 13 Number of children 3 Impression: The patient has low bone mass, based on the Right Femoral Neck T-score. The patient has an estimated ten-year risk o
== END ==
PROVIDERS: PCP Family Medicine; Visit Provider Family Medicine
DX: Z78.0 Asymptomatic menopausal state (principal); M85.89 Other specified disorders of bone density and structure, multiple sites
CPT/HCPCS: 77080

== ENCOUNTER 2022-03-19 08:42 | Emergency (ER) | payer MEDICARE, SELFPAY ==
--- NOTE | ~2022-03-19 | US_ITS ---
US right upper quadrant INDICATION: Right upper quadrant pain PROCEDURE: Realtime right upper abdominal ultrasound. COMPARISON: No prior studies for comparison. FINDINGS: The pancreas is normal without focal mass or pancreatic ductal dilation. Liver echotexture is normal without focal mass or intrahepatic biliary dilatation. There is normal directional flow i n the portal vein. There are gallstones. No gallbladder wall thickening or pericholecystic fluid. Common bile duct gely ures 4 mm. No sonographic Roberto's sign. IMPRESSION: 1: Cholelithiasis. Reviewed, dictated and finalized at location A. IMPRESSION: 1: Cholelithiasis.
[2022-03-19 09:00] VITALS: BP 158/79; PULSE 80; RESP 17; TEMP 36.8; O2SAT 94
[2022-03-19 09:19] LABS: Basophils Percent Auto 0.1 % (0.2-1.2); Eosinophils Absolute Auto 0.1 K/mm3 (0-0.3); Eosinophils Percent Auto 0.7 % (0-4.4); Hematocrit 41.4 % (37.0-47.0); Hemoglobin 13.4 g/dL (12.0-15.0); Immature Granulocyte Absolute 0.03 K/mm3 (0.00-0.031); Immature Granulocyte Percent A 0.3 % (0-0.5); Lymphocytes Absolute Auto 1.86 K/mm3 (0.9-3.2); Lymphocytes Percent Auto 18.6 % (18.3-44.2); Mean Corpuscular HGB Conc 32.4 g/dl (32-36); Mean Corpuscular Hemoglobin 28.2 pg (26-34); Mean Platelet Volume 10.2 fl (7.4-10.4); Monocytes Absolute Auto 0.6 K/mm3 (0.1-0.6); Monocytes Percent Auto 5.8 % (2.6-8.5); Neutrophils Absolute Auto 7.4 K/mm3 (1.3-6.7); Neutrophils Percent Auto 74.5 % (45.5-73.1); Platelet Count Result 281 k/mm3 (150-375); Red Blood Count 4.76 M/mm3 (4.2-5.4); Red Cell Distribution Width 13.2 % (11.5-14.5)
[2022-03-19 09:29] LABS: Alanine Aminotransferase 19 U/L (6-35); Albumin Level 4.5 g/dL (3.5-5.1); Alkaline Phosphatase 69 U/L (38-126); Anion Gap 15 mmol/L (8-16); Aspartate Amino Transferase 23 U/L (14-36); Bilirubin,Total 0.2 mg/dL (0.2-1.3); Blood Urea Nitrogen 7 mg/dL (7-17); Calcium 9.5 mg/dL (8.4-10.2); Carbon Dioxide 24 mmol/L (22-30); Chloride 98 mmol/L (98-107); Estimated CRCL calculation 71 ml/min; Estimated Glomerular Filt Rate > 60; Glucose 150 mg/dL (65-110); Lipase 43 U/L (23-300); Potassium 3.6 mmol/L (3.4-5.0); Sodium 137 mmol/L (137-145)
[2022-03-19] MEDS: MORPHINE SULFATE (*CRX) 4 MG/ML INJ IV PUSH (09:45)
--- NOTE | 2022-03-19 10:26 | ED.ABDPAIN ---
HPI - Abdominal Pain General Chief Complaint: Abdominal Pain Stated Complaint: abd pain Time Seen by Provider: 03/19/22 08:57 History of Present Illness HPI narrative: Patient is a 72-year-old female who presents ER with abdominal pain. Located in the right upper quadrant. Began last night at 8:30 PM. Constant throughout the night. Mild nausea but no vomiting. No fevers or chills or sweats. Has been having some pain with eating recently. No known history of gallstones. Related Data Home Medications Medication Instructions Recorded Confirmed multivitamin with minerals 1 tablet PO DAILY 12/01/19 12/07/21 (One-A-Day Maximum Formula tablet) aspirin 81 mg tablet,delayed 81 mg PO DAILY 12/07/21 12/07/21 release (Adult Aspirin Regimen) calcium carb-ergocalciferol (vit tablet PO 12/07/21 12/07/21 D2) 600 mg calcium-200 unit tablet Allergies Allergy/AdvReac Type Severity Reaction Status Date / Time azithromycin AdvReac Unknown Abdominal Verified 12/07/21 10:23 Pain Review of Systems Review of Systems: All systems reviewed & are unremarkable except as noted in HPI and below Constitutional: Constitutional: Denies chills, Denies fatigue and Denies fever(s) ENT: Denies nasal congestion and Denies sore throat Cardiovascular: Cardiovascular: Denies chest pain, Denies rapid heart rate and Denies radiating jaw, neck or arm pain Respiratory: Respiratory: Denies cough and Denies dyspnea Gastrointestinal: Gastrointestinal: Reports abdominal pain, Reports nausea and Denies vomiting PMFSH Past Medical History Medical History Anxiety Arthritis Deficiency of other specified B group vitamins (10/17/17) Depression Hypothyroidism, unspecified Insomnia Mixed hyperlipidemia Need for tetanus booster Osteopenia Polymyalgia rheumatica Prediabetes Vision abnormalities Surgical History Surgical History History of thumb surgery Normal colonoscopy Family History Family History Other Diabetes mellitus Social History Social History Smoking status: Never smoker Second hand tobacco smoke exposure: No Alcohol intake: current Substance use: never Substance use type: does not use Additional living arrangements comments: HUSB Gender identity (if verbalized by the patient): Female Sexual Orientation (if Verbalized by the Patient): Straight or Heterosexual Spiritual care concerns: No Agree to blood products: Yes Exam Narrative: GENERAL: Well-appearing, well-nourished, and in no acute distress. HEAD: Normocephalic, atraumatic. EYES: PERRL and EOMI. CHEST: Clear to auscultation. No respiratory distress. HEART: Regular rate and rhythm. Normal peripheral pulses. ABDOMEN: Soft, tender palpation right upper quadrant without guarding, nondistended. EXTREMITIES: Normal range of motion. No edema. SKIN: Warm, dry, no rash. NEURO: Alert and oriented x3. PSYCH: Normal mood and affect. Course Course Emergency Course: Patient resting comfortably. Pain improved with morphine. Repeat exam does not reveal tenderness. Discussed results and need for follow-up with general surgery. Patient verbalized understanding. Vital Signs Vital signs: Vital Signs Temperature 98.3 F 03/19/22 09:00 Pulse Rate 80 03/19/22 09:00 Respiratory Rate 17 03/19/22 09:00 Blood Pressure 158/79 H 03/19/22 09:00 Pulse Oximetry 94 03/19/22 09:00 Temperature 98.3 F 03/19/22 09:00 Pulse Rate 80 03/19/22 09:00 Respiratory Rate 17 03/19/22 09:00 Blood Pressure 158/79 H 03/19/22 09:00 Pulse Oximetry 94 03/19/22 09:00 MDM - Abdominal Pain Lab Data Result diagrams: 03/19/22 09:14 03/19/22 09:14 Labs: Lab Results 03/19/22
[2022-03-19 10:43] VITALS: BP 132/67; RESP 73; O2SAT 94
== END 2022-03-19 10:50 | disposition home or self-care (01) ==
PROVIDERS: Emergency Provider Emergency Medicine; PCP Family Medicine
DX: K80.20 Calculus of gallbladder without cholecystitis without obstruction (principal); Z79.82 Long term (current) use of aspirin; E03.9 Hypothyroidism, unspecified; E78.5 Hyperlipidemia, unspecified; R73.03 Prediabetes
CPT/HCPCS: 36415; 76705; 80053; 83690; 85025; 96374; 99284; J2270

== ENCOUNTER 2022-03-29 09:22 | Outpatient (CLI) | payer MEDICARE, SELFPAY ==
[2022-03-29 09:57] LABS: Alanine Aminotransferase 18 U/L (6-35); Albumin Level 4.2 g/dL (3.5-5.1); Alkaline Phosphatase 67 U/L (38-126); Amylase 56 U/L (30-110); Aspartate Amino Transferase 23 U/L (14-36); Bilirubin,Total 0.2 mg/dL (0.2-1.3); Lipase 42 U/L (23-300)
== END 2022-03-29 09:23 | disposition home or self-care (01) ==
LOC: ANHSURGERY 09:26
PROVIDERS: PCP Family Medicine; Visit Provider Surgery
DX: Z01.818 Encounter for other preprocedural examination (principal); K80.10 Calculus of gallbladder with chronic cholecystitis without obstruction
CPT/HCPCS: 36415; 80076; 82150; 83690; 86850; 86900; 86901

== ENCOUNTER 2022-03-31 00:14 | Day surgery (SDC) | payer MEDICARE, SELFPAY ==
[2022-03-26 13:36] VITALS: BMI 29.2
--- NOTE | 2022-03-26 13:53 | PC.NURSE ---
Report to the Outpatient Waiting Room, entrance under the green pavilion located off [facility], at time __11:30AM on date __03/31/22 . Planned Procedure Time: _1:30PM . Time changes happen often and if your time is changed the preop area will call you the afternoon before. - You and your visitor will be asked to self-screen and do not enter if you have any COVID symptoms. - We encourage only one visitor and NO visitors under age 16 are allowed at this time. Your visitor will receive communication by the phone number that is given day of service. - The patient visitor is requested to social distance or may leave the building when not with patient due to restrictions. - A mask is required within the hospital. Patients may have clear liquids (water, carbonated beverages, clear teas, apple juice) until 3 hours prior to surgery with a maximum of 20 ounces. - No food from midnight until time of surgery Take the following medications with a SIP of water the morning of surgery: __VENLAFAXINE; ALBUTEROL INHALER, HYDROCODONE & ONDANSETRON NEEDED__ Medications to discontinue per physician ____HOLD ALL VITAMINS/SUPPLEMENT 3 DAYS PRE- OP Date to take last dose____03/27/22 Please no make-up, nail swedish, hairspray, perfume, deodorant, or body powder the day of surgery. No jewelry (including any body piercings) or valuables the day of surgery, leave them at home. Please take a shower or bath the night before, or the morning of, surgery with an antibacterial soap. Wear comfortable, loose fitting clothing. Children are encouraged to wear pajamas. - Jewelry must be removed prior to entering the operating room. Rings and piercings that are not removed may be cut off. - The hospital will not accept responsibility for valuables. - Please leave all valuables, including medications, at home the day of surgery. If you are going home after surgery, a licensed local tanker truck driver must drive you home. - NO public transportation without another adult. - We recommend that an adult stay with you for 24 hours following discharge. - We also recommend that you do not drive, make important decision, drink alcoholic beverages, or take any drugs that were not prescribed by your health care provider for at least 24 hours after your discharge time. Follow any additional instructions given to you from your surgeon. If you or anyone in your household have experienced Covid symptoms in the past week, please notify your surgeon or the nurse liaison at the phone number below for possible testing. Telephone instructions given to ___PATIENT and asked if any additional questions and then verbalized understanding. Patient advised to call surgeon office or pre surgery nurse liaison [phone] if any additional questions.
[2022-03-31] MEDS: ACETAMINOPHEN 500 MG TABLET 1000 MG PO (11:38)
[2022-03-31 11:48] VITALS: BP 129/79; PULSE 73; RESP 16; TEMP 36.6; O2SAT 97
--- NOTE | 2022-03-31 11:50 | WPDANESEPPF ---
Anes - Initial Pre Proc Eval Procedure: Operation Date: 03/31/22 13:30 Proposed Procedures p Laparoscopic Cholecystectomy - Navjot Charlton MD Date/Time: 03/31/22 11:50 Surgeon: Navjot Charlton MD Pre Op Diagnosis: chronic cholecystitis with stones Patient Data Age: 72 Gender: F Height: 1.6 m Weight: 76 kg Last Vital Signs Temp 36.6 C 03/31/22 11:48 Pulse 73 03/31/22 11:48 Resp 16 03/31/22 11:48 BP 129/79 03/31/22 11:48 Pulse Ox 97 03/31/22 11:48 O2 Del Method Room Air 03/31/22 11:48 Allergies Allergy/AdvReac Type Severity Reaction Status Date / Time azithromycin AdvReac Unknown Abdominal Verified 03/31/22 11:33 Pain Home Medications Medication Instructions Recorded Confirmed Type multivitamin with minerals 1 tablet PO DAILY 12/01/19 03/26/22 History (One-A-Day Maximum Formula tablet) simvastatin 20 mg tablet 20 mg PO DAILY #90 tabs 08/12/21 03/26/22 Rx sertraline 100 mg tablet 100 mg PO HS #90 tabs 11/17/21 03/26/22 Rx aspirin 81 mg tablet,delayed 81 mg PO DAILY 12/07/21 03/26/22 History release (Adult Aspirin Regimen) calcium carb-ergocalciferol (vit 1 tablet PO DAILY 12/07/21 03/26/22 History D2) 600 mg calcium-200 unit tablet venlafaxine 150 mg 150 mg PO DAILY #90 caps 01/20/22 03/26/22 Rx capsule,extended release 24 hr (Effexor XR) risperidone 0.5 mg tablet 0.5 mg PO QHS #90 tabs 03/12/22 03/26/22 Rx (Risperdal) albuterol sulfate 90 mcg/actuation 1 inh inhalation Q4H PRN shortness 03/25/22 03/26/22 Rx aerosol inhaler (ProAir HFA) of breath or wheezing #8.5 grams hydrocodone 5 mg-acetaminophen 325 1 tablet PO Q4-6H PRN Pain 03/26/22 03/26/22 History mg tablet ondansetron 4 mg disintegrating 4 mg PO Q4-6H PRN Nausea 03/26/22 03/26/22 History tablet Patient hx anesthesia problems: none Family hx anesthesia problems: none Results Review: All pre-operative results and documents have been reviewed as part of the pre-operative evaluation. [facility] Past Medical History Medical History Anxiety Arthritis Deficiency of other specified B group vitamins (10/17/17) Depression Dyspnea Hypothyroidism, unspecified Insomnia Mixed hyperlipidemia Need for tetanus booster Osteopenia Polymyalgia rheumatica Prediabetes Vision abnormalities Surgical History Surgical History History of thumb surgery Normal colonoscopy S/P shoulder surgery Family History Family History Sibling COPD (chronic obstructive pulmonary disease) Father Lung cancer Mother Acute myocardial infarction Unknown Heart disease Hypertension Cancer Other Diabetes mellitus Social History Social History Smoking status: Never smoker Second hand tobacco smoke exposure: No Alcohol intake: current Substance use: never Substance use type: does not use Has the Lack of Transportation Kept You From Medical Appointments or From Getting Medications?: No Within the Past 12 Months, Were You Worried Whether Your Food Would Run Out Before You Got Money to Buy More?: Never True What is Your Housing Situation Today?: I Have Housing Are You Worried That in the Next 2 Months, You May Not Have Your Own Housing to Live In?: No Do You Have Trouble Paying Your Heating Or Electricity Bill?: No Do You Have Trouble Paying For Medicines?: No Are You Currently Unemployed and Looking for Work?: No Highest Level of Education Completed: High School Diploma/GED Do You Have Trouble With Childcare or the Care of a Family Member?: No Living arrangements: with family Additional living arrangements comments: HUSB Gender identity (if verbalized by the patient): Female Sexual Orientation (if Verbalized by the Patient): Straight or Heterosexual Spiritual
[2022-03-31] MEDS: LACTATED RINGERS 1,000 ML 30 ML IV CONT ×2 (12:03→14:14)
[2022-03-31] MEDS: KETOROLAC 15 MG/ML VIAL (*BKC) IV PUSH (12:03)
--- NOTE | 2022-03-31 12:14 | WPDHPUPDATE1 ---
History and Physical Update Update Date/Time: 03/31/22 12:14 History and Physical has been reviewed, including an updated exam of the patient. There are NO changes in the patient's condition. Risks, benefits, and alternatives have been discussed and questions answered. Patient agrees to proceed with procedure.
[2022-03-31] MEDS: ceFAZolin 2 GM/D5W 50 ML 2 GM/50 ML BAG IVPB (13:05)
[2022-03-31] MEDS: BUPIVACAINE/EPINEPHRINE 0.25% 50 ML VIAL INFILTRATE (13:37)
--- NOTE | 2022-03-31 14:11 | P.OP_ITS ---
Procedure Note - Detailed Date of Procedure 03/31/22 Pre-op Diagnosis chronic cholecystitis with stones Post-op Diagnosis Same Procedure Performed Laparoscopic cholecystectomy Surgeon Navjot Charlton MD [employer] Charity Rivas [facility] Anesthesia General and Local (0.25% Marcaine with epinephrine) Indications Patient has had multiple episodes of postprandial upper abdominal pain. She has numerous gallstones on imaging. She is taken to surgery now for laparoscopic cholecystectomy. Findings Gallbladder showed evidence of chronic inflammation and was literally packed with gallstones. The fluid in the gallbladder was clear consistent with hydrops and cystic duct obstruction. There was no biliary ductal dilatation and no liver abnormalities. Description of Procedure Patient was taken to surgery and induced into general anesthesia. The abdomen is prepped draped. Trocars were placed in the usual fashion using 0.25% Marcaine with epinephrine and applied Medical optical trocars. A 5 mm camera was used. The gallbladder was decompressed with a laparoscopic aspirator. The fluid in the gallbladder was clear as mentioned above. There was many gallstones such that there was very little fluid drained off and the gallbladder was still very distended with dozens of stones. We retracted the gallbladder anterosuperiorly. Dissection was carried out in the cholecystohepatic triangle. The cystic duct and cystic artery were dissected out very clearly. We dissected the gallbladder off the liver at its lower 3rd. Critical view was achieved. I then securely clipped and divided the cystic duct and cystic artery. The gallbladder was then dissected free of its remaining attachments to the liver. It was placed in an Endo-Catch bag and retrieved through the epigastric trocar site. I had to enlarge both the skin and the fascial opening at the epigastric trocar site to accommodate the gallbladder. Once the gallbladder was removed, replaced the epigastric trocar and used a towel clip to occlude the skin and subcutaneous a week and reinsufflated. I reviewed the gallbladder fossa and right upper quadrant. All looked good with no evidence of bleeding or bile leakage. We then evacuated CO2 and removed the trocar sleeves. I closed the fascia at the epigastric trocar site with 0 Vicryl suture. The subQ was closed with 3-0 Vicryl suture. Skin wounds were all closed with 4-0 Monocryl subcuticular skin suture. The wounds were dressed with Exofin surgical adhesive. The patient was awakened and taken to recovery in good condition. Sponge and needle counts were correct x2. Estimated Blood Loss -5 Drains No Packing No Pathology Yes (Gallbladder) Complications No immediate complications Condition Stable Disposition PACU [facility] Billing Surgery - Charge Forward: Surgery Billing (Laparoscopic cholecystectomy)
[2022-03-31 14:20] VITALS: BP 129/44; PULSE 84; RESP 13; TEMP 36.4; O2SAT 100
[2022-03-31 14:35] VITALS: BP 108/47; PULSE 83; RESP 13; O2SAT 100
[2022-03-31 14:50] VITALS: BP 110/53; PULSE 82; RESP 16; O2SAT 98
[2022-03-31 15:05] VITALS: BP 122/58
[2022-03-31 15:35] VITALS: BP 117/54; PULSE 87; RESP 16
== END 2022-03-31 16:00 | disposition home or self-care (01) ==
PROVIDERS: PCP Family Medicine; Visit Provider Surgery
PROC: 0FT44ZZ Resection of Gallbladder, Percutaneous Endoscopic Approach (ICD-10-PCS; CPT 47562; principal; 2022-03-31 13:30)
DX: K80.10 Calculus of gallbladder with chronic cholecystitis without obstruction (principal); K82.1 Hydrops of gallbladder; E78.2 Mixed hyperlipidemia; M35.3 Polymyalgia rheumatica; F41.9 Anxiety disorder, unspecified; R73.03 Prediabetes; F32.A Depression, unspecified; Z79.51 Long term (current) use of inhaled steroids; Z79.82 Long term (current) use of aspirin
CPT/HCPCS: 47562; 88304; A9270; C1713; J0690; J1100; J1885; J2405; J2704; J2710; J3010; J7120

== ENCOUNTER 2022-04-21 14:09 | Outpatient (CLI) | payer MEDICARE, SELFPAY ==
--- NOTE | 2022-04-21 16:19 | WPDPFTINT ---
PFT Procedure Performed PFT Procedure Performed Plethysmography (Lung Vol) Diffusing Cap (DLCO) Flow Vol Loop Spirometry w/o Bronchodil PFT Interpretation This is a pulmonary function test with spirometry, plethysmography and diffusing capacity. The test was performed and results interpreted in accordance with the 2019 and 2005 ATS/ERS Task Force guidelines respectively using the Global Lung Function Initiative-2012 reference equations. Patient demonstrated good effort and cooperation. Reproducibility criteria were met. The quality of the spirometry maneuver was Grade A. Findings: Spirometry: The contour the inspiratory and expiratory flow tracing are normal. The FVC is 2.56 L, 94% predicted. The FEV1 is 2.10 L, 99% predicted. The FEV1: FVC ratio was 82%. Plethysmography: The total lung capacity is 4.53 L, 92% predicted. The functional residual capacity is 2.13 L, 76% predicted. The residual volume is 1.90 L, 88% predicted. Diffusing capacity: The diffusing capacity unadjusted for hemoglobin and carboxyhemoglobin is 18.0, 90% predicted. The diffusing capacity adjusted for alveolar volume is 5.03, 116% predicted. Impression: The spirometry is normal without evidence of an obstructive abnormality. The lung volumes are normal. The diffusing capacity is normal. There are no prior studies for comparison
== END 2022-04-21 14:10 | disposition home or self-care (01) ==
LOC: ANHPFT 14:10
PROVIDERS: PCP Family Medicine; Visit Provider Physician Assistant Medical
DX: R06.00 Dyspnea, unspecified (principal)
CPT/HCPCS: 94060; 94726; 94729

== ENCOUNTER 2022-08-14 09:11 | Outpatient (CLI) | payer MEDICARE, SELFPAY ==
--- NOTE | ~2022-08-14 | MM_ITS ---
EXAMINATION: MM screening [facility] BI w marko HISTORY: Screening TECHNIQUE: Craniocaudal and mediolateral oblique 3-D tomosynthesis images were obtained and synthetic 2-D images were generated. CAD analysis was submitted and interpreted. COMPARISON: Comparison to multiple prior studies sequentially, with oldest reviewed study dated 04/29. BREAST PARENCHYMAL COMPOSITION: Breast composed of scattered areas of fibroglandular density FINDINGS: There is no evidence of suspicious mass, calcification, or architectural distortion to sugg est malignancy in either breast. There has been no suspicious interval change. IMPRESSION: 1. No mammographic evidence of malignancy. 2. Recommend routine screening mammography in one year. BI-RADS Category 1: Negative Reviewed, dictated and finalized at location A.
== END 2022-08-14 09:12 | disposition home or self-care (01) ==
PROVIDERS: PCP Family Medicine; Visit Provider Family Medicine
DX: Z12.31 Encounter for screening mammogram for malignant neoplasm of breast (principal)
CPT/HCPCS: 77063; 77067

== ENCOUNTER 2023-08-18 09:23 | Outpatient (CLI) | payer MEDICARE, SELFPAY ==
--- NOTE | ~2023-08-18 | MM_ITS ---
EXAMINATION: MM screening [facility] BI w marko HISTORY: Screening TECHNIQUE: Craniocaudal and mediolateral oblique 3-D tomosynthesis images were obtained and synthetic 2-D images were generated. CAD analysis was submitted and interpreted. COMPARISON: Comparison to multiple prior studies sequentially, with oldest reviewed study dated 04/30. BREAST PARENCHYMAL COMPOSITION: Not dense: There are scattered areas of fibroglandular density. FINDINGS: There is no evidence of suspicious mass, calcification, or architectural distortion to sugg est malignancy in either breast. There has been no suspicious interval change. IMPRESSION: 1. No mammographic evidence of malignancy. 2. Recommend routine screening mammography in one year. BI-RADS Category 1: Negative Reviewed, dictated and finalized at location A.
== END 2023-08-18 09:24 | disposition home or self-care (01) ==
PROVIDERS: PCP Family Medicine; Visit Provider Family Medicine
DX: Z12.31 Encounter for screening mammogram for malignant neoplasm of breast (principal)
CPT/HCPCS: 77063; 77067

== ENCOUNTER 2023-10-13 14:23 | Emergency (ER) | payer MEDICARE, SELFPAY ==
[2023-10-13 14:36] VITALS: BP 117/65; PULSE 91; RESP 16; TEMP 36.3; O2SAT 98
--- NOTE | 2023-10-13 14:37 | ED.GENADULT ---
HPI - General Adult General Chief complaint: Wound/Laceration Stated complaint: Swollen Right Foot Time Seen by Provider: 10/13/23 14:37 Source: patient, RN notes reviewed and old records reviewed Mode of arrival: ambulatory Limitations: no limitations History of Present Illness HPI narrative: 73-year-old female presents to the [facility] with complaints of 4th toe right foot being itchy, red and swollen. Area between toes 3 and 4 has mild induration, sloughing skin, probable athlete's foot. Surrounding erythema noted with some increased warmth States she may have been bit a day or 2 ago but woke up this morning redness Related Data Home Medications Medication Instructions Recorded Confirmed multivitamin with minerals 1 tablet PO DAILY 12/01/19 10/13/23 (One-A-Day Maximum Formula tablet) aspirin 81 mg tablet,delayed 81 mg PO DAILY 12/07/21 10/13/23 release (Adult Aspirin Regimen) calcium carb-ergocalciferol (vit 1 tablet PO DAILY 12/07/21 10/13/23 D2) 600 mg calcium-200 unit tablet Allergies Allergy/AdvReac Type Severity Reaction Status Date / Time azithromycin AdvReac Unknown Abdominal Verified 10/13/23 14:58 Pain Review of Systems Review of Systems: All systems reviewed & are unremarkable except as noted in HPI and below Constitutional: Constitutional: Reports no additional constitutional complaints Eyes: Eyes: Reports no additional eye complaints ENT: Reports system reviewed and no additional complaints, except as documented Cardiovascular: Cardiovascular: Reports no additional cardiovascular complaints, Denies chest pain and Denies dyspnea Respiratory: Respiratory: Reports no additional respiratory complaints, Denies chest congestion, Denies cough and Denies dyspnea Gastrointestinal: Gastrointestinal: Reports no additional gastrointestinal complaints, Denies abdominal pain, Denies nausea and Denies vomiting Musculoskeletal: Musculoskeletal: Reports no additional musculoskeletal complaints Integumentary/Breasts: Skin/Breast: Reports as per HPI Neurologic: Reports system reviewed and no additional complaints, except as documented Psychiatric: Psychiatric: Reports no additional psychiatric complaints Allergic/Immunologic: Allergic/Immunologic: Reports no additional allergic/immunologic complaints PMF Past Medical History Medical History Anxiety Arthritis Deficiency of other specified B group vitamins (10/17/17) Depression Dyspnea Hypothyroidism, unspecified Insomnia Mixed hyperlipidemia Need for tetanus booster Osteopenia Polymyalgia rheumatica Prediabetes Vision abnormalities Surgical History Surgical History History of thumb surgery Hx laparoscopic cholecystectomy 03/31/22 Normal colonoscopy S/P shoulder surgery Family History Family History Sibling COPD (chronic obstructive pulmonary disease) Father Lung cancer Mother Acute myocardial infarction Unknown Heart disease Hypertension Cancer Other Diabetes mellitus Social History Social History Smoking status: Never smoker Second hand tobacco smoke exposure: No Alcohol intake: current Substance use: never Substance use type: does not use Lack of Transportation: No Lack of Food: Never True Current Housing: I Have Housing Concerned About Future Housing: No Difficulty Paying Gas/Electric Bills: No Difficulty Paying for Meds: No Currently Unemployed: No Education: High School Diploma/GED Difficulty w/ Childcare or Family Care: No Living arrangements: with family Additional living arrangements comments: [place] Gender identity (if verbalized by the patient): Female Sexual Orientation (if Verbalized by the Patient): Straight or Heterosexual Spiritual care jaguar
== END 2023-10-13 14:56 | disposition home or self-care (01) ==
PROVIDERS: Emergency Provider Nurse Practitioner; PCP Family Medicine
DX: B35.3 Tinea pedis (principal); L03.031 Cellulitis of right toe; E03.9 Hypothyroidism, unspecified; E78.2 Mixed hyperlipidemia; M85.80 Other specified disorders of bone density and structure, unspecified site; M35.3 Polymyalgia rheumatica; R73.03 Prediabetes; M19.90 Unspecified osteoarthritis, unspecified site; Z79.82 Long term (current) use of aspirin
CPT/HCPCS: 99213; G0463

== ENCOUNTER 2024-08-18 10:08 | Outpatient (CLI) | payer MEDICARE, SELFPAY ==
--- NOTE | ~2024-08-18 | MM_ITS ---
EXAMINATION: MM screening [facility] BI w marko HISTORY: Screening TECHNIQUE: Craniocaudal and mediolateral oblique 3-D tomosynthesis images were obtained and synthetic 2-D images were generated. CAD analysis was submitted and interpreted. COMPARISON: 08/18/2023 and dating back to 06/12/2019 BREAST PARENCHYMAL COMPOSITION: The breasts are heterogeneously dense, which may obscure small masses . FINDINGS: Punctate and bulky calcifications are detected bilaterally, stable and benign in appearance . Stable parenchymal pattern without suspicious microcalcifications, architectural distortion, discrete masses or significant asymmetry. IMPRESSION: 1. No mammographic evidence of malignancy. 2. Recommend routine screening mammography in one year. BI-RADS Category 2: Benign finding(s). Reviewed, dictated and finalized at location A.
== END 2024-08-18 10:09 | disposition home or self-care (01) ==
LOC: ANHIMG 10:11
PROVIDERS: PCP Family Medicine; Visit Provider Family Medicine
DX: Z12.31 Encounter for screening mammogram for malignant neoplasm of breast (principal)
CPT/HCPCS: 77063; 77067

== ENCOUNTER 2025-01-21 17:30 | Emergency (ER) | payer MEDICARE, SELFPAY ==
[2025-01-21] VITALS (11 sets, daily range): BP systolic 139–153; BP diastolic 66–73; PULSE 76–99; RESP 14–22; TEMP 36.6; O2SAT 95–98
--- NOTE | ~2025-01-21 | XR_ITS ---
EXAMINATION: XR chest 2V DATE: 01/21/2025 18:39 INDICATION: Dizziness TECHNIQUE: PA and lateral views of the chest were obtained. COMPARISON: Chest radiograph dated 08/12/2016 FINDINGS: Unchanged small paracardial fat pads projecting along the anterior lung bases on the lateral projection. No new airspace opacities, pulmonary edema, pleural effusion or pneumothorax. The cardiomediastinal silhouette is normal. Cholecystectomy clips in right upper quadrant. Atherosclerotic aorta. IMPRESSION: 1. No acute cardiopulmonary disease. Reviewed, dictated and finalized at location A.
--- NOTE | ~2025-01-21 | CT_ITS ---
EXAMINATION: CT brain wo con DATE: 01/21/2025 18:35 INDICATION: Dizziness TECHNIQUE: Computed tomography (CT) of the head was performed without intravenous contrast. Sagittal and coronal reconstructions were performed. The mA was adjusted according to patient size. Iterative reconstruction technique was employed. The dose-length product was 681.00 mGy-cm. COMPARISON: head CT dated 11/14/13 FINDINGS: No acute intracranial hemorrhage, acute infarction or abnormal extra axial fluid collection. There is mild scattered white matter hypoattenuation consistent with chronic small vessel ischemic disease. Symmetric prominence of the sulci and ventricles consistent with mild age-appropriate diffuse cerebral volume loss. Ventricles are normal and symmetric. No mass/mass effect. Mild mucosal thickening in the right sphenoid sinus. The orbits and mastoid air cells are normal. IMPRESSION: 1. Normal aging brain. No acute intracranial process. Reviewed, dictated and finalized at location A.
[2025-01-21] MEDS: MECLIZINE HCL 25 MG TABLET PO (18:59)
[2025-01-21] MEDS: SODIUM CHLORIDE 0.9% IV 1,000 ML 999 ML IV CONT (19:07)
[2025-01-21 20:08] LABS: Add Urine Microscopic? YES; Appearance Urine Cloudy (Clear); Glucose Urine UA Negative (Negative); Leukocyte Esterase Ur 1+ LEU/UL (Negative); Nitrate Urine Negative (Negative); Non Pathogenic Casts 0-2; Specific Grav Ur 1.011 (1.001-1.035)
--- NOTE | 2025-01-21 20:26 | ED.GENADULT ---
HPI - General Adult General Chief complaint: Dizziness Stated complaint: dizzy for days Time Seen by Provider: 01/21/25 18:00 History of Present Illness HPI narrative: Patient is a 74-year-old female who presents ER with dizziness. Ongoing for 5 days. Called her PCP today who recommended she come to the ER for blood work and imaging. She becomes dizzy when she looks up or sometimes when she is walking in turns her head. No sinus congestion or sore throat or cough. No tinnitus. She has not had similar symptoms in the past. No arm or leg numbness or weakness. No slurred speech. Symptoms are short lived and reproducible. Related Data Home Medications ?Medication ?Instructions ?Recorded ?Confirmed ?Last Taken ?Type multivitamin with minerals 1 tablet PO DAILY 12/01/19 11/15/24 04/12/21 History (One-A-Day Maximum Formula tablet) aspirin 81 mg tablet,delayed 81 mg PO DAILY 12/07/21 11/15/24 Unknown History release (Adult Aspirin Regimen) calcium carb-ergocalciferol (vit 1 tablet PO DAILY 12/07/21 11/15/24 Unknown History D2) 600 mg calcium-200 unit tablet Allergies Allergy/AdvReac Type Severity Reaction Status Date / Time azithromycin AdvReac Unknown Abdominal Verified 01/21/25 17:31 Pain Review of Systems Review of Systems: All systems reviewed & are unremarkable except as noted in HPI and below Constitutional: Constitutional: Reports no additional constitutional complaints ENT: Reports system reviewed and no additional complaints, except as documented Cardiovascular: Cardiovascular: Reports no additional cardiovascular complaints Respiratory: Respiratory: Reports no additional respiratory complaints Gastrointestinal: Gastrointestinal: Reports no additional gastrointestinal complaints Musculoskeletal: Musculoskeletal: Reports no additional musculoskeletal complaints [facility] Past Medical History Medical History Dyspnea Prediabetes Need for tetanus booster Insomnia Arthritis Vision abnormalities Polymyalgia rheumatica Anxiety Deficiency of other specified B group vitamins (10/17/17) Depression Hypothyroidism, unspecified Mixed hyperlipidemia Osteopenia Surgical History Surgical History Hx laparoscopic cholecystectomy 03/31/22 S/P shoulder surgery History of thumb surgery Normal colonoscopy Family History Family History Sibling COPD (chronic obstructive pulmonary disease) Father Lung cancer Mother Acute myocardial infarction Unknown Heart disease Hypertension Cancer Other Diabetes mellitus Social History Social History Smoking status: Never smoker Second hand tobacco smoke exposure: No Alcohol intake: current Substance use: never Substance use type: does not use Lack of Transportation: No Lack of Food: Never True Current Housing: I Have Housing Concerned About Future Housing: No Difficulty Paying Gas/Electric Bills: No Difficulty Paying for Meds: No Currently Unemployed: No Education: High School Diploma/GED Difficulty w/ Childcare or Family Care: No Living arrangements: with family Additional living arrangements comments: HUSB Gender identity (if verbalized by the patient): Female Sexual Orientation (if Verbalized by the Patient): Straight or Heterosexual Spiritual care concerns: No Agree to blood products: Yes Exam Narrative: GENERAL: Well-appearing, well-nourished, and in no acute distress. HEAD: Normocephalic, atraumatic. EYES: PERRL, EOMI ENT: Mucous membranes moist. CHEST: Clear to auscultation. No respiratory distress. HEART: Regular rate and rhythm. Normal peripheral pulses. ABDOMEN: Soft, nontender, nondistended. EXTREMITIES: Normal range of motion. No edema. SKIN: Warm, dry, no rash. NEURO: Alert and oriented x3. PSYCH: Normal mood and affect. Course Course Emergency Course: Patient resting comfortably. Dizziness improved with meclizine. Unremarkable workup. Discharge home. Vital Signs Vital signs: Vital Signs Temperature 97.8 F 01/21/25 17:32 Pulse Rate 99 01/21/25 17:32 Respiratory Rate 17 01/21/25 17:32 Blood Pressure 153/69 H 01/21/25 17:32 Pulse Oximetry 98 01/21/25 17:32 Oxygen Delivery Room Air 01/21/25 17:32 Temperature 97.8 F 01/21/25 17:32 Pulse Rate 77 01/21/25 19:25 Respiratory Rate 22 H 01/21/25 18:45 Blood Pressure 140/66 01/21/25 18:16 Pulse Oximetry 96 01/21/25 18:45 Oxygen Delivery Room Air 01/21/25 17:32 Medical Decision Making Vital Signs Vital Signs: Vital Signs Temperature 97.8 F 01/21/25 17:32 Pulse Rate 99 01/21/25 17:32 Respiratory Rate 17 01/21/25 17:32 Blood Pressure 153/69 H 01/21/25 17:32 Pulse Oximetry 98 01/21/25 17:32 Oxygen Delivery Room Air 01/21/25 17:32 Temperature 97.8 F 01/21/25 17:32 Pulse Rate 77 01/21/25 19:25 Respiratory Rate 22 H 01/21/25 18:45 Blood Pressure 140/66 01/21/25 18:16 Pulse Oximetry 96 01/21/25 18:45 Oxygen Delivery Room Air 01/21/25 17:32 Lab Data 01/21/25 19:09 01/21/25 19:09 Labs: Lab Results 01/21/25 01/21/25 Range/Units 19:09 19:59 WBC 6.6 (4.5-10.0) K/mm3 RBC 4.40 (4.2-5.4) M/mm3 Hgb 12.1 (12.0-15.0) g/dL Hct 38.5 (37.0-47.0) % MCV 87.5 (80-100) fl MCH 27.5 (26-34) pg MCHC 31.4 L (32-36) g/dl RDW 13.9 (11.5-14.5) % Plt Count 248 (150-375) k/mm3 MPV 11.0 H (7.4-10.4) fl Immature Gran % (Auto) 0.3 (0-0.5) % Neut % (Auto) 49.7 (45.5-73.1) % Lymph % (Auto) 35.7 (18.3-44.2) % [place] % (Auto) 10.6 H (2.6-8.5) % Eos % (Auto) 3.5 (0-4.4) % Baso % (Auto) 0.2 (0.2-1.2) % Lymph # (Auto) 2.37 (0.9-3.2) K/mm3 [place] # (Auto) 0.7 H (0.1-0.6) K/mm3 Eos # (Auto) 0.2 (0-0.3) K/mm3 Baso # (Auto) 0.0 (0.0-0.1) K/mm3 Abs Immat Gran (auto) 0.02 (0.00-0.031) K/mm3 Absolute Neuts (auto) 3.3 (1.3-6.7) K/mm3 Absolute Nucleated RBC 0.000 (0.0-0.012) K/mm3 Nucleated RBC % 0.0 (0.0-0.2) % Sodium 135 L (137-145) mmol/L Potassium 3.9 (3.4-5.0) mmol/L Chloride 103 (98-107) mmol/L Carbon Dioxide 24 (22-30) mmol/L Anion Gap 8 (4-12) mmol/L BUN 13 D (7-17) mg/dL Creatinine 0.70 (0.7-1.0) mg/dL Estim Creat Clear Calc 58 ml/min Estimated GFR > 60 (59 - ) Glucose 109 (65-110) mg/dL Calcium 9.2 (8.4-10.2) mg/dL Total Bilirubin 0.2 (0.2-1.3) mg/dL AST 31 (14-36) U/L ALT 22 (6-35) U/L Alkaline Phosphatase 50 (38-126) U/L Total Protein 6.7 (6.3-8.2) g/dL Albumin 4.0 (3.5-5.1) g/dL Urine Color Yellow (Yellow) Urine Appearance Cloudy H (Clear) Urine pH 6.5 (5.0-9.0) Ur Specific [place] 1.011 (1.001-1.035) Urine Protein Negative (Negative) mg/dL Urine Glucose (UA) Negative (Negative) mg/dL Urine Ketones Negative (Negative) mg/dL Ur Blood (Man) Trace (Negative) Urine Nitrate Negative (Negative) Urine Bilirubin Negative (Negative) Urine Urobilinogen 0.2 (<2.0) mg/dL Leukocyte Esterase Rfl 1+ H (Negative) BONNIE/UL Urine RBC 3-5 H (0-2) /hpf Urine WBC 11-20 H (0-3) /hpf Ur Squamous Epith Cells None seen (Few) /hpf Urine Bacteria None seen /hpf Urine Casts 0-2 Imaging Data Radiologist's impression: ITS Impressions Head CT 01/21/25 18:48 IMPRESSION: 1. Normal aging brain. No acute intracranial process. Chest X-Ray 01/21/25 19:30 IMPRESSION: 1. No acute cardiopulmonary disease. Discharge Plan Discharge Clinical Impression: Vertigo Patient Disposition: Home Condition: Stable Instructions: Vertigo (ED) Additional Instructions: Return to the ER if you have worsening dizziness, you cannot keep down food water, you lose consciousness, or you have additional concerns. Patient Language: Ghanaian Prescriptions: New meclizine 25 mg tablet 25 mg PO BID PRN (Reason: dizziness) Qty: 14 0RF No Action sulfamethoxazole-trimethoprim [Bactrim DS] 800-160 mg tablet 1 tablet PO Q12H Qty: 14 0RF aspirin [Adult Aspirin Regimen] 81 mg tablet,delayed release (DR/EC) 81 mg PO DAILY calcium carbonate-vitamin D2 600 mg calcium- 200 unit tablet 1 tablet PO DAILY One-A-Day Maximum Formula Tablet 1 tablet PO DAILY triamcinolone acetonide 0.1 % cream 1 applic topical BID PRN (Reason: neck irritation) Qty: 80 0RF simvastatin 20 mg tablet 20 mg PO DAILY Qty: 90 2RF sertraline 100 mg tablet 100 mg PO HS Qty: 90 1RF Rx Instructions: TAKE 1 TABLET BY MOUTH DAILY risperidone [Risperdal] 0.5 mg tablet 0.5 mg PO QHS Qty: 90 2RF venlafaxine [Effexor XR] 150 mg capsule,extended release 24hr 150 mg PO DAILY Qty: 90 1RF Rx Instructions: takes in am Follow-up/Referrals: Pam Borges MD [Primary Care Provider, Family Practice] - 1 Week
[2025-01-21 20:32] LABS: Hematocrit 38.5 % (37.0-47.0); Hemoglobin 12.1 g/dL (12.0-15.0); Immature Granulocyte Percent A 0.3 % (0-0.5); Lymphocytes Absolute Auto 2.37 K/mm3 (0.9-3.2); Mean Corpuscular HGB Conc 31.4 g/dl (32-36); Mean Corpuscular Hemoglobin 27.5 pg (26-34); Mean Corpuscular Volume 87.5 fl (80-100); Nucleated Red Blood Cells Absolute Auto 0.000 K/mm3 (0.0-0.012); Nucleated Red Blood Cells Perc 0.0 % (0.0-0.2); Platelet Count Result 248 k/mm3 (150-375); Red Blood Count 4.40 M/mm3 (4.2-5.4); White Blood Count 6.6 K/mm3 (4.5-10.0)
[2025-01-21 20:44] LABS: Alanine Aminotransferase 22 U/L (6-35); Albumin Level 4.0 g/dL (3.5-5.1); Alkaline Phosphatase 50 U/L (38-126); Anion Gap 8 mmol/L (4-12); Aspartate Amino Transferase 31 U/L (14-36); Bilirubin,Total 0.2 mg/dL (0.2-1.3); Blood Urea Nitrogen 13 mg/dL (7-17); Calcium 9.2 mg/dL (8.4-10.2); Carbon Dioxide 24 mmol/L (22-30); Chloride 103 mmol/L (98-107); Estimated CRCL calculation 58 ml/min; Estimated Glomerular Filt Rate > 60; Glucose 109 mg/dL (65-110); Potassium 3.9 mmol/L (3.4-5.0); Sodium 135 mmol/L (137-145); Total Protein 6.7 g/dL (6.3-8.2)
== END 2025-01-21 21:35 | disposition home or self-care (01) ==
PROVIDERS: Emergency Provider Emergency Medicine; PCP Family Medicine
DX: R42 Dizziness and giddiness (principal); E03.9 Hypothyroidism, unspecified; E78.2 Mixed hyperlipidemia; R73.03 Prediabetes; M35.3 Polymyalgia rheumatica; M19.90 Unspecified osteoarthritis, unspecified site; M85.80 Other specified disorders of bone density and structure, unspecified site; F32.A Depression, unspecified; F41.9 Anxiety disorder, unspecified; Z90.49 Acquired absence of other specified parts of digestive tract; Z79.899 Other long term (current) drug therapy
CPT/HCPCS: 36415; 70450; 71046; 80053; 81001; 85025; 87086; 96360; 99284; A9270; J7030